=== PATIENT | female | born 1960 | race Caucasian/White ===

== ENCOUNTER 2020-10-13 07:58 | Emergency (ER) | payer BC, OTHER ==
[2020-10-13 08:47] LABS: HEMOGLOBIN 16.3 gm/dl (12.3-15.3); RED BLOOD COUNT 5.15 M/UL (4.00-5.10); WHITE BLOOD COUNT 5.7 K/UL (4.5-11.0)
[2020-10-13 09:08] LABS: BUN/CREATININE RATIO 20 (0-10)
[2020-10-13] MEDS ORDERED: TESSALON PERLE100 MG PO (10:21)
== END 2020-10-13 11:03 | disposition home or self-care (01) ==
LOC: ER1 07:58
PROVIDERS: Physician Assistant Medical
DX: J06.9 Acute upper respiratory infection, unspecified (principal); F17.210 Nicotine dependence, cigarettes, uncomplicated; Z20.822 Contact with and (suspected) exposure to COVID-19
CPT/HCPCS: 71045; 80053; 83605; 85025; 87081; 87880; 99283; J7030; U0002

== ENCOUNTER → 2021-01-28 | Outpatient (CLI) | payer BC, OTHER ==
[~2021-01-28] MED LIST: PERCOCET 5/325 T1 EA PO; TESSALON PERLE100 MG PO
== END ==
LOC: MAMO 01-27 13:30
DX: Z12.31 Encounter for screening mammogram for malignant neoplasm of breast (principal)
CPT/HCPCS: 77063; 77067

== ENCOUNTER 2021-01-30 04:56 | Emergency (ER) | payer BC, OTHER ==
[~2021-01-30 04:56] MED LIST changes: -PERCOCET 5/325 T1 EA PO
[2021-01-30] MEDS ORDERED: PERCOCET 5/325 T1 EA PO (06:39)
== END 2021-01-30 07:10 | disposition home or self-care (01) ==
LOC: ER1 04:56
DX: M71.9 Bursopathy, unspecified (principal); Z90.49 Acquired absence of other specified parts of digestive tract
CPT/HCPCS: 73030; 99283; J1030

== ENCOUNTER → 2022-05-04 | Outpatient (CLI) | payer BC ==
[~2022-05-04] MED LIST changes: +PERCOCET 5/325 T1 EA PO
[2022-05-04 07:19] LABS: HEMOGLOBIN 14.5 gm/dl (12.3-15.3); RED BLOOD COUNT 4.59 M/UL (4.00-5.10); WHITE BLOOD COUNT 9.6 K/UL (4.5-11.0)
[2022-05-04 12:02] LABS: BUN/CREATININE RATIO 24 (0-10)
[2022-05-05 14:13] LABS: CHOLESTEROL, TOTAL 238 mg/dL (100-199); HDL SIZE 9.4 nm (>=9.2); HDL-C 57 mg/dL (>39); HDL-P (TOTAL) 36.3 umol/L (>=30.5); LARGE VLDL-P 3.2 nmol/L (<=2.7); LDL SIZE 21.5 nm (>20.5); LDL SIZE 21.5 nm (>=20.8); LDL-C 156 mg/dL (0-99); LDL-P 1890 nmol/L (<1000); LP-IR SCORE 34 (<=45); SMALL LDL-P 678 nmol/L (<=527); TRIGLYCERIDES 138 mg/dL (0-149); VLDL SIZE 43.9 nm (<=46.6)
== END ==
LOC: LAB 06:56
PROVIDERS: Emergency Medicine
DX: F41.1 Generalized anxiety disorder (principal); F33.0 Major depressive disorder, recurrent, mild; E78.2 Mixed hyperlipidemia; Z79.899 Other long term (current) drug therapy
CPT/HCPCS: 36415; 80053; 80061; 82306; 83704; 84443; 84550; 85027